=== PATIENT | female | born 1940 | race Native Hawaiian/Other Pacific Islander ===

== ENCOUNTER 2022-11-13 12:11 | Emergency (ER) | payer OTHER ==
[~2022-11-13] VITALS: Ht 160 cm; Wt 59.0 kg
[2022-11-13 12:16] VITALS: TEMP 97.5
[2022-11-13] MEDS ORDERED: K-TABS10 MEQ PO (12:50)
[2022-11-13] MEDS ORDERED: LIPITOR40 MG PO (12:51)
[2022-11-13] MEDS ORDERED: FUROSEMIDE80 MG PO (12:51)
[2022-11-13] MEDS ORDERED: LEVOTHYROXINE112 MCG PO (12:52)
[2022-11-13] MEDS ORDERED: APIX1TAB PO (12:53)
[2022-11-13] MEDS ORDERED: DIGOXIN125 MCG PO (12:54)
[2022-11-13] MEDS ORDERED: METO100T37 PO (12:55)
[2022-11-13 13:17] LABS: PLATELET COUNT 204 K/uL (152-353)
[2022-11-13 13:20] LABS: POTASSIUM 5.2 mmol/L (3.6-5.2)
[2022-11-13 15:30] VITALS: BP 159/88
== END 2022-11-13 15:35 | disposition short-term general hospital (02) ==
LOC: ED 12:11
PROVIDERS: Emergency Medicine Emergency Medical Services
PROC: 0T9B70Z Drainage of Bladder with Drainage Device, Via Natural or Artificial Opening (ICD-10-PCS; principal; 2022-11-13)
DX: I21.4 Non-ST elevation (NSTEMI) myocardial infarction (principal); I50.9 Heart failure, unspecified; I10 Essential (primary) hypertension; I25.2 Old myocardial infarction; Z79.899 Other long term (current) drug therapy
CPT/HCPCS: 36415; 51702; 80053; 81000; 83735; 83880; 84484; 85027; 85610; 85730; 87077; 87086; 87088; 87186; 93005; 96374; 96375; 99284; J1940; J3490

== ENCOUNTER 2022-11-17 10:04 | Inpatient (IN) | payer OTHER ==
[~2022-11-17 10:04] MED LIST: APIX1TAB PO; DIGOXIN125 MCG PO; FUROSEMIDE80 MG PO; K-TABS10 MEQ PO; LEVOTHYROXINE112 MCG PO; LIPITOR40 MG PO; METO100T37 PO
[2022-11-17 15:57] LABS: PLATELET COUNT 241 K/uL (152-353)
[2022-11-17 17:16] LABS: POTASSIUM 4.8 mmol/L (3.6-5.2)
[2022-11-21] MEDS ORDERED: LIPITOR40 MG PO (15:26)
[2022-11-21] MEDS ORDERED: COZAAR25 MG PO (15:27)
[2022-11-21] MEDS ORDERED: APIX1TAB PO (15:30)
[2022-11-21] MEDS ORDERED: CEFUROXIME500 MG PO (15:32)
[2022-11-21] MEDS ORDERED: DULCOLAX SS100 MG PO (15:33)
[2022-11-21] MEDS ORDERED: TYLENOL325 MG PO (15:35)
[2022-11-21] MEDS ORDERED: LOPERAMIDE2 MG PO (15:36)
[2022-11-21] MEDS ORDERED: MIRALAX17 GM PO (15:40)
[2022-11-21] MEDS ORDERED: TRAZODONE HYDRO50 MG PO (15:41)
[2022-11-21] MEDS ORDERED: ONDA4TAB3 PO (15:42)
== END 2022-11-19 10:42 | disposition still patient (30) ==
LOC: PAVB 10:04
PROVIDERS: ADMIT Family Medicine; ATTEND Family Medicine
DX: J96.00 Acute respiratory failure, unspecified whether with hypoxia or hypercapnia (principal); I50.33 Acute on chronic diastolic (congestive) heart failure; I48.91 Unspecified atrial fibrillation; M62.81 Muscle weakness (generalized); R26.2 Difficulty in walking, not elsewhere classified; R27.9 Unspecified lack of coordination; Z74.1 Need for assistance with personal care
CPT/HCPCS: 80053; 81000; 85027; 87077; 87081; 87086; 87088; 87186

== ENCOUNTER 2022-11-19 02:29 | Emergency (ER) | payer OTHER ==
[~2022-11-19] VITALS: Ht 160 cm; Wt 59.0 kg
[2022-11-19 02:30] VITALS: TEMP 98.1
[2022-11-19 03:30] VITALS: BP 146/78
[2022-11-21] MEDS ORDERED: LIPITOR40 MG PO (15:26)
[2022-11-21] MEDS ORDERED: COZAAR25 MG PO (15:27)
[2022-11-21] MEDS ORDERED: APIX1TAB PO (15:30)
[2022-11-21] MEDS ORDERED: CEFUROXIME500 MG PO (15:32)
[2022-11-21] MEDS ORDERED: DULCOLAX SS100 MG PO (15:33)
[2022-11-21] MEDS ORDERED: TYLENOL325 MG PO (15:35)
[2022-11-21] MEDS ORDERED: LOPERAMIDE2 MG PO (15:36)
[2022-11-21] MEDS ORDERED: MIRALAX17 GM PO (15:40)
[2022-11-21] MEDS ORDERED: TRAZODONE HYDRO50 MG PO (15:41)
[2022-11-21] MEDS ORDERED: ONDA4TAB3 PO (15:42)
== END 2022-11-19 03:30 ==
LOC: ED 02:29
DX: S09.8XXA Other specified injuries of head, initial encounter (principal); W18.39XA Other fall on same level, initial encounter; Y92.128 Other place in nursing home as the place of occurrence of the external cause
CPT/HCPCS: 99283

== ENCOUNTER 2022-11-21 12:42 | Inpatient (IN) | payer OTHER ==
[~2022-11-21] VITALS: Ht 157.5 cm; Wt 63.2 kg
[2022-11-21 12:53] VITALS: BP 153/78; TEMP 99.6
[2022-11-21 13:05] LABS: PLATELET COUNT 216 K/uL (152-353)
[2022-11-21 13:09] VITALS: BP 144/77
[2022-11-21 13:20] LABS: POTASSIUM 3.8 mmol/L (3.6-5.2)
[2022-11-21 15:10] VITALS: BP 122/78; TEMP 97.5; Ht 157.5 cm; Wt 63.2 kg
[2022-11-21] MEDS ORDERED: LIPITOR40 MG PO ×2 (15:26)
[2022-11-21] MEDS ORDERED: COZAAR25 MG PO ×2 (15:27)
[2022-11-21] MEDS ORDERED: APIX1TAB PO ×2 (15:30)
[2022-11-21] MEDS ORDERED: CEFUROXIME500 MG PO ×2 (15:32)
[2022-11-21] MEDS ORDERED: DULCOLAX SS100 MG PO ×2 (15:33)
[2022-11-21] MEDS ORDERED: TYLENOL325 MG PO ×2 (15:35)
[2022-11-21] MEDS ORDERED: LOPERAMIDE2 MG PO ×2 (15:36)
[2022-11-21] MEDS ORDERED: MIRALAX17 GM PO ×2 (15:40)
[2022-11-21] MEDS ORDERED: TRAZODONE HYDRO50 MG PO ×2 (15:41)
[2022-11-21] MEDS ORDERED: ONDA4TAB3 PO ×2 (15:42)
[2022-11-21 20:00] VITALS: BP 175/60; BP 99/44; TEMP 96.9; TEMP 97.6
[2022-11-22] VITALS: BP 102/44; TEMP 96.4
[2022-11-22 03:55] VITALS: BP 100/60; TEMP 96.2
[2022-11-22 08:00] VITALS: BP 85/47; TEMP 95.8
== END 2022-11-22 11:00 | disposition short-term general hospital (02) | DRG 999 ==
LOC: ED 12:42 → MED/SURG 14:00
PROVIDERS: ADMIT Emergency Medicine; ATTEND Internal Medicine
DX: J96.01 Acute respiratory failure with hypoxia (principal); I50.23 Acute on chronic systolic (congestive) heart failure; R62.7 Adult failure to thrive; I49.8 Other specified cardiac arrhythmias; I25.10 Atherosclerotic heart disease of native coronary artery without angina pectoris; I25.2 Old myocardial infarction; Z95.1 Presence of aortocoronary bypass graft; F03.90 Unspecified dementia, unspecified severity, without behavioral disturbance, psychotic disturbance, mood disturbance, and anxiety; E11.9 Type 2 diabetes mellitus without complications; I11.0 Hypertensive heart disease with heart failure
CPT/HCPCS: 51702; 80053; 81002; 83880; 84484; 85027; 87635; 93005; 96374; 96376; 99284; J1940; J2270; J2405; U0003

== ENCOUNTER 2022-11-22 11:00 | Inpatient (IN) | payer OTHER ==
[~2022-11-22] VITALS: Ht 157.5 cm; Wt 63.3 kg
[~2022-11-22 11:00] MED LIST changes: +CEFUROXIME500 MG PO; +COZAAR25 MG PO; +DULCOLAX SS100 MG PO; +LOPERAMIDE2 MG PO; +MIRALAX17 GM PO; +ONDA4TAB3 PO; +TRAZODONE HYDRO50 MG PO; +TYLENOL325 MG PO
== END 2022-11-22 20:07 | disposition expired | DRG 291 ==
LOC: MED/SURG 11:00
PROVIDERS: ADMIT Internal Medicine; ATTEND Internal Medicine
DX: I11.0 Hypertensive heart disease with heart failure (principal); I50.23 Acute on chronic systolic (congestive) heart failure; J96.01 Acute respiratory failure with hypoxia
CPT/HCPCS: J2270